=== PATIENT | female | born 1985 | race Caucasian/White ===

== ENCOUNTER 2016-08-05 15:39 | Emergency (ER) | payer OTHER ==
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
[2016-08-05] MEDS ORDERED: IBUPROFEN 600 MG TAB PO STA (17:09)
[2016-08-05 17:18] VITALS: BP 120/75; PULSE 86; RESP 16; TEMP 97.4
== END 2016-08-05 17:35 | disposition home or self-care (01) ==
LOC: EC 15:39
DX: S06.0X0A Concussion without loss of consciousness, initial encounter (principal); S00.511A Abrasion of lip, initial encounter; S00.83XA Contusion of other part of head, initial encounter; V89.2XXA Person injured in unspecified motor-vehicle accident, traffic, initial encounter; Z79.51 Long term (current) use of inhaled steroids; Z79.899 Other long term (current) drug therapy
CPT/HCPCS: 70450; 70486; 72125; 99283

== ENCOUNTER → 2016-08-06 | Outpatient (CLI) | payer OTHER ==
--- NOTE | 2016-08-06 13:06 | XR ---
EXAMINATION TYPE: XR knee complete RT DATE OF EXAM: 08/06/2016 1:01 PM CLINICAL HISTORY: pain TECHNIQUE: Frontal, lateral and oblique images of the right foot are obtained. COMPARISON: None. FINDINGS: There is no acute fracture/dislocation evident. The joint spaces appear within normal yu its. The overlying soft tissue appears unremarkable. IMPRESSION: There is no acute fracture or dislocation. ICD 10 NO FRACTURE, INITIAL EVALUATION
== END | disposition home or self-care (01) ==
LOC: RADXRMAIN 12:51
PROVIDERS: ATTEND Emergency Medicine
DX: S80.01XA Contusion of right knee, initial encounter (principal)

== ENCOUNTER → 2016-09-06 | Outpatient (CLI) | payer OTHER | END | disposition home or self-care (01) | LOC: LABPAT 09:20 | PROVIDERS: ATTEND Surgery ==

== ENCOUNTER 2016-11-25 06:25 | Day surgery (SDC) | payer OTHER ==
[2016-11-20 11:41] VITALS: BMI 20.9
[~2016-11-25 06:25] MED LIST: DEXAMETHASONE SOD PHOSPHATE 10 MG/ML 1 ML VIAL IV ONE; HEPARIN SODIUM,PORCINE 5,000 UNIT/ML 1 ML VIAL SQ ONE; LACTATED RINGERS 1,000 ML IV SCH; ONDANSETRON 4 MG/2 ML VIAL IVP ONE; SCOPOLAMINE 1.5MG/72HR PATCH TRANSDERM ONE; ceFAZolin 2 GM in SODIUM CHLORIDE 0.9% 100 ML IVPB ONE
[2016-11-25 06:45] VITALS: RESP 16
[2016-11-25] MEDS ORDERED: LIDOCAINE 1% 20 ML VIAL (10MG/ML) FOR IV START INTRADERMA ONE (06:50)
[2016-11-25] MEDS ORDERED: BUPIVACAIN-EPI 0.5%-1:200,000 30 ML VIAL SQ ONE ×2 (07:27→08:20)
--- NOTE | 2016-11-25 07:49 | P.GSHP ---
History of Present Illness H&P Date: 11/25/16 Chief Complaint: Incisional hernia This is a 31-year-old female who presents today for laparoscopic robotic- assisted repair of incisional hernia. Patient has developed a hernia at her incision for her . The hernia is increased in size. - Constitutional Constitutional: Reports as per HPI Past Medical History Past Medical History: No Reported History Additional Past Medical History / Comment(s): INCISIONAL HERNIA., ALLERGIES. History of Any Multi-Drug Resistant Organisms: None Reported Past Surgical History: Section Additional Past Surgical History / Comment(s): BUNIONECTOMY X2, X2 Past Anesthesia/Blood Transfusion Reactions: No Reported Reaction Smoking Status: Never smoker - Past Family History Mother Family Medical History: No Reported History Medications and Allergies Home Medications Medication Instructions Recorded Confirmed Type Fluticasone Nasal [place] [Flonase 2 spr EA NOSTRIL DAILY PRN 08/05/16 11/25/16 History Nasal [place]] Loratadine [Claritin] 10 mg PO DAILY PRN 08/05/16 11/25/16 History Escitalopram [Lexapro] 10 mg PO DAILY 09/05/16 11/25/16 History Ibuprofen [Motrin] 800 mg PO BID 09/05/16 11/25/16 History Allergies Allergy/AdvReac Type Severity Reaction Status Date / Time No Known Allergies Allergy Verified 11/25/16 06:41 Surgical - Exam Vital Signs Temp Pulse Resp BP Pulse Ox 98.5 F 69 16 123/78 100 11/25/16 06:35 11/25/16 06:35 11/25/16 06:35 11/25/16 06:35 11/25/16 06:35 - General well developed, no distress - Eyes PERRL - ENT normal pinna - Neck no masses - Respiratory normal expansion - Cardiovascular Rhythm: regular - Abdomen Abdomen: soft, non tender Hernia: incisional (3 cm incisional hernia located near umbilicus) Assessment and Plan Plan: Incisional hernia. We'll perform laparoscopic robotic assistance repair.
[2016-11-25] MEDS ORDERED: MIDAZOLAM 2 MG/2 ML VIAL ONE (07:54)
[2016-11-25] MEDS ORDERED: PROPOFOL 10 MG/ML 20 ML VIAL IV ONE (07:54)
[2016-11-25] MEDS ORDERED: fentaNYL (PF) 50 MCG/ML 2 ML AMP ONE (07:54)
[2016-11-25] MEDS ORDERED: LIDOCAINE 1% INJ 10MG/ML (20 ML MDV) ONE (07:54)
[2016-11-25] MEDS ORDERED: SUCCINYLCHOLINE CHLORIDE 100 MG/5 ML SYR IV ONE (07:54)
[2016-11-25] MEDS ORDERED: GLYCOPYRROLATE 0.2 MG/ML 2 ML VIAL ONE (07:54)
[2016-11-25] MEDS ORDERED: diphenhydrAMINE 50 MG/ML 1 ML VIAL ONE (07:54)
[2016-11-25] MEDS ORDERED: MORPHINE SULFATE 10 MG/ML SYRINGE ONE (07:54)
[2016-11-25] MEDS ORDERED: ROCURONIUM BROMIDE 10 MG/ML 10 ML VIAL IV ONE (07:54)
[2016-11-25] MEDS ORDERED: NEOSTIGMINE 1 MG/ML 10 ML VIAL ONE (07:54)
[2016-11-25] MEDS ORDERED: LACTATED RINGERS 1,000 ML IV ONE ×3 (09:03→14:36)
--- NOTE | 2016-11-25 09:04 | P.OP ---
Date of Procedure: 11/25/16 Preoperative Diagnosis: Incisional hernia Postoperative Diagnosis: Incisional hernia Procedure(s) Performed: Laparoscopic robotic-assisted repair of incisional hernia Implants: Anesthesia: SALMAA Surgeon: Brayden Hart Estimated Blood Loss (ml): 5 Pathology: none sent Condition: stable Disposition: PACU Indications for Procedure: Operative Findings: Description of Procedure: The patient's placed on the operating table in the supine position. She received general anesthesia. Her abdomen was prepped and draped usual fashion. The skin incision sites were anesthetized 1% local Xylocaine. Using a 5 mm optical trocar the peritoneal cavity was entered in the left upper quadrant. The abdomen was insufflated and then after adequate insufflation a 8 mm robotic trochars placed left lower quadrant and a 12 mm trochars placed in the left lateral position. The patient's placed left side up position. The patient was then docked the robot. The patient had a midline incisional hernia located near the umbilicus. Using OV lock suture. The hernia was repaired. Next a 11 cm round ventral light ST mesh was placed. Cavity and secured with 2 OV lock suture. The patient was then undocked the robot. The needles were retrieved. The 1200 trocar with was removed and the trocar site was closed with 0 Ethibond suture using a Jayme Lee suture passer. The trochars withdrawn. Skin was closed with interrupted 3-0 Monocryl suture. Dermabond was applied. Patient top she will was sent to recovery in stable condition.
[2016-11-25 09:25] VITALS: TEMP 98.2
[2016-11-25] MEDS: HYDROmorphone 1 MG/ML 1 ML SYRINGE IVP PRN ×3 (09:30→09:40)
[2016-11-25] MEDS ORDERED: KETOROLAC 30 MG/ML 1 ML VIAL IVP ONE (09:41)
[2016-11-25] MEDS: MIDAZOLAM 2 MG/2 ML VIAL IV PRN ×2 (09:45→09:51)
[2016-11-25] MEDS ORDERED: HYDROcodone/APAP 7.5-325MG 1 EACH TAB PO ONE ×2 (11:34→11:43)
[2016-11-25] MEDS ORDERED: ONDANSETRON 4 MG/2 ML VIAL IVP ONE (14:29)
[2016-11-25 14:39] VITALS: BP 117/77; PULSE 73
== END 2016-11-25 16:49 | disposition home or self-care (01) ==
LOC: OR 06:25
PROVIDERS: ATTEND Surgery
DX: K43.2 Incisional hernia without obstruction or gangrene (principal); Z79.1 Long term (current) use of non-steroidal anti-inflammatories (NSAID); Z79.899 Other long term (current) drug therapy
CPT/HCPCS: 81025; 86900; 86901; 86850; 49654; C1781; J2250; J1644; J1100; J0690; J2405; J1885; J1170

== ENCOUNTER → 2017-01-01 | Outpatient (CLI) | payer OTHER ==
--- NOTE | 2017-01-01 20:51 | CT ---
EXAMINATION TYPE: CT abdomen pelvis w con DATE OF EXAM: 01/01/2017 COMPARISON: NONE HISTORY: Left lower quadrant pain x [address] DLP: 452.70 mGycm Automated exposure control for dose reduction was used. TECHNIQUE: Helical acquisition of images was performed from the lung bases through the pelvis. CONTRAST: Performed with Oral Contrast and with IV Contrast, patient injected with 100 mL of Omnipaque 300. FINDINGS: Lung bases are clear. There is no pleural effusion. There is no pericardial effusion. Liver spleen pancreas appear normal. Gallbladder is contracted. There is no adrenal mass. Bile ducts are not dilated. Kidneys show satisfactory contrast opacification. There is no hydronephrosis. Ureters are not dilated . There is a 2.5 cm cyst on the left ovary. There are clips from tubal ligation. Urinary bladder is l arge. There is a small amount of free fluid in the cul-de-sac. I see no intestinal wall thickening. There are some distended small bowel loops in the left upper анна drant that measure up to 4 cm. Oral contrast reaches the distal ileum however. There is no sign of a mechanical obstruction. I see no bony destructive process.. There is no sign of appendicitis. IMPRESSION: DISTENDED PROXIMAL SMALL BOWEL IS NONSPECIFIC AND COULD RELATE TO LOCALIZED ILEUS. NO EVIDENCE OF A BOWEL OBSTRUCTION. DILATED URINARY BLADDER. MINIMAL FREE FLUID IN THE CUL-DE-SAC COULD BE PHYSIOLOGIC.
== END | disposition home or self-care (01) ==
LOC: RADCTMAIN 15:27
PROVIDERS: ATTEND Surgery
DX: K56.7 Ileus, unspecified (principal); N32.89 Other specified disorders of bladder; K63.89 Other specified diseases of intestine
CPT/HCPCS: 74177; Q9967

== ENCOUNTER 2017-09-28 09:54 | Observation (INO) | payer OTHER ==
[2017-09-28] MEDS ORDERED: NITROGLYCERIN OINT 1 INCH/GM PACKET TOPICAL STA (10:19)
[2017-09-28] MEDS ORDERED: ASPIRIN 81 MG PO STA (10:19)
--- NOTE | 2017-09-28 10:22 | ED ---
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 Patient states it was a pressure in the left side of her heart she was also mildly diaphoretic. Patient denied any difficulty breathing or shortness of breath per patient denies any nausea. Patient states she does not have diabetes high blood pressure or high cholesterol. Patient denies any smoking history. Patient states she has heart history on both sides of the family. Patient denies any recent fever chills or cough. Patient denies abdominal pain. Patient denies any nausea vomiting. Patient denies any recent injury or trauma she denies headache patient denies numbness weakness per patient denies lightheadedness dizziness or near syncopal episode. - Related Data Home Medications Medication Instructions Recorded Confirmed Fluticasone Nasal [place] [Flonase 2 spr EA NOSTRIL DAILY PRN 08/05/16 09/28/17 Nasal [place]] Loratadine [Claritin] 10 mg PO DAILY 08/05/16 09/28/17 Budesonide/Formoterol Fumarate 1 puff INHALATION RT-BID 09/28/17 09/28/17 [Symbicort 160-4.5 Mcg Inhaler] Montelukast [Singulair] 10 mg PO DAILY 09/28/17 09/28/17 Allergies Allergy/AdvReac Type Severity Reaction Status Date / Time No Known Allergies Allergy Verified 09/28/17 10:18 Review of Systems ROS Statement: Those systems with pertinent positive or pertinent negative responses have been documented in the HPI. ROS Other: All systems not noted in ROS Statement are negative. Past Medical History Past Medical History: No Reported History Additional Past Medical History / Comment(s): INCISIONAL HERNIA., coastchodritis History of Any Multi-Drug Resistant Organisms: None Reported Past Surgical History: Section, Hernia Repair Additional Past Surgical History / Comment(s): BUNIONECTOMY X2, X2 Past Anesthesia/Blood Transfusion Reactions: No Reported Reaction Past Psychological History: Depression Smoking Status: Never smoker Past Alcohol Use History: None Reported Past Drug Use History: None Reported - Past Family History Mother Family Medical History: No Reported History General Exam - General Exam Comments Initial Comments: GENERAL: Patient is well-developed and well-nourished. Patient is nontoxic and well- hydrated and is in mild distress. ENT: Neck is soft and supple. No significant lymphadenopathy is noted. Oropharynx is clear. Moist mucous membranes. Neck has full range of motion without eliciting any pain. EYES: The sclera were anicteric and conjunctiva were pink and moist. Extraocular movements were intact and pupils were equal round and reactive to light. Eyelids were unremarkable. PULMONARY: Unlabored respirations. Good breath sounds bilaterally. No audible rales rhonchi or wheezing was noted. CARDIOVASCULAR: There is a regular rate and rhythm without any murmurs gallops or rubs. ABDOMEN: Soft and nontender with normal bowel sounds. No palpable organomegaly was noted. There is no palpable pulsatile mass. SKIN: Skin is clear with no lesions or rashes and otherwise unremarkable. NEUROLOGIC: Cerebellar exam grossly intact. MUSCULOSKELETAL: Normal extremities with adequate strength and full range of motion. No lower extremity swelling or edema. No calf tenderness. LYMPHATICS: No significant lymphadenopathy is noted PSYCHIATRIC: Normal psychiatric evaluation. Normal interpersonal interactions appears functionally intact in deals appropriately with others. No signs of depression. No signs of anxiety. Limitations: no limitations Course Vital Signs 09/28/17 09:56 Temperature 97.9 F Pulse Rate 78 Respiratory 16 Rate Blood Pressure 155/66 O2 Sat by Pulse 100 Oximetry Medical Decision Making - Medical Decision Making EKG shows a normal sinus rhythm at 79 bpm SD interval is 158 QRS 72 QT interval 376 QTC is 431. Patient's EKG shows no ST segment elevation or depression. Chest x-ray shows no acute abnormalities. Patient states that the chest pain got worse for a little while in the emergency department but reduced but has not gone away completely. Patient also mentioned she has been having some headaches over the last week or 2 but denied any strokelike symptoms. Patient states headache now is very slight - Lab Data Result diagrams: 09/28/17 10:17 09/28/17 10:17 Lab Results 09/28/17 09/28/17 09/28/17 Range/Units 10:17 10:17 10:17 WBC 5.8 (3.8-10.6) k/uL RBC 3.98 (3.80-5.40) m/uL Hgb 10.8 L (11.4-16.0) gm/dL Hct 32.7 L (34.0-46.0) % MCV 82.2 (80.0-100.0) fL MCH 27.1 (25.0-35.0) pg MCHC 32.9 (31.0-37.0) g/dL RDW 14.2 (11.5-15.5) % Plt Count 199 (150-450) k/uL Neutrophils % 74 % Lymphocytes % 18 % Monocytes % 5 % Eosinophils % 2 % Basophils % 0 % Neutrophils # 4.3 (1.3-7.7) k/uL Lymphocytes # 1.0 (1.0-4.8) k/uL Monocytes # 0.3 (0-1.0) k/uL Eosinophils # 0.1 (0-0.7) k/uL Basophils # 0.0 (0-0.2) k/uL PT (9.0-12.0) sec INR (<1.2) APTT (22.0-30.0) sec Sodium 143 (137-145) mmol/L Potassium 4.2 (3.5-5.1) mmol/L Chloride 107 (98-107) mmol/L Carbon Dioxide 25 (22-30) mmol/L Anion Gap 11 mmol/L BUN 14 (7-17) mg/dL Creatinine 0.62 (0.52-1.04) mg/dL Est GFR (CKD-EPI)AfAm >90 (>60 ml/min/1.73 sqM) Est GFR (CKD-EPI)NonAf >90 (>60 ml/min/1.73 sqM) Glucose 87 (74-99) mg/dL Calcium 9.6 (8.4-10.2) mg/dL Magnesium 1.8 (1.6-2.3) mg/dL Total Bilirubin 0.2 (0.2-1.3) mg/dL AST 15 (14-36) U/L ALT 15 (9-52) U/L Alkaline Phosphatase 45 (38-126) U/L Total Creatine Kinase 80 (30-135) U/L CK-MB (CK-2) 0.6 (0.0-2.4) ng/mL CK-MB (CK-2) Rel Index 0.8 Troponin I <0.012 (0.000-0.034) ng/mL Total Protein 6.2 L (6.3-8.2) g/dL Albumin 3.9 (3.5-5.0) g/dL 09/28/17 Range/Units 10:17 WBC (3.8-10.6) k/uL RBC (3.80-5.40) m/uL Hgb (11.4-16.0) gm/dL Hct (34.0-46.0) % MCV (80.0-100.0) fL MCH (25.0-35.0) pg MCHC (31.0-37.0) g/dL RDW (11.5-15.5) % Plt Count (150-450) k/uL Neutrophils % % Lymphocytes % % Monocytes % % Eosinophils % % Basophils % % Neutrophils # (1.3-7.7) k/uL Lymphocytes # (1.0-4.8) k/uL Monocytes # (0-1.0) k/uL Eosinophils # (0-0.7) k/uL Basophils # (0-0.2) k/uL PT 10.3 (9.0-12.0) sec INR 1.1 (<1.2) APTT 25.2 (22.0-30.0) sec Sodium (137-145) mmol/L Potassium (3.5-5.1) mmol/L Chloride (98-107) mmol/L Carbon Dioxide (22-30) mmol/L Anion Gap mmol/L BUN (7-17) mg/dL Creatinine (0.52-1.04) mg/dL Est GFR (CKD-EPI)AfAm (>60 ml/min/1.73 sqM) Est GFR (CKD-EPI)NonAf (>60 ml/min/1.73 sqM) Glucose (74-99) mg/dL Calcium (8.4-10.2) mg/dL Magnesium (1.6-2.3) mg/dL Total Bilirubin (0.2-1.3) mg/dL AST (14-36) U/L ALT (9-52) U/L Alkaline Phosphatase (38-126) U/L Total Creatine Kinase (30-135) U/L CK-MB (CK-2) (0.0-2.4) ng/mL CK-MB (CK-2) Rel Index Troponin I (0.000-0.034) ng/mL Total Protein (6.3-8.2) g/dL Albumin (3.5-5.0) g/dL Disposition Clinical Impression: Chest pain Disposition: ADMITTED IP TO THIS HOSP Referrals: Julita Camp DO [Primary Care Provider] - 1-2 days Time of Disposition: 12:01
[2017-09-28 10:38] LABS: Basophils % (A) 0 %; Eosinophils # (A) 0.1 k/uL (0-0.7); Eosinophils % (A) 2 %; HCT 32.7 % (34.0-46.0); HGB 10.8 gm/dL (11.4-16.0); Lymphocytes % (A) 18 %; MCH 27.1 pg (25.0-35.0); MCHC 32.9 g/dL (31.0-37.0); MCV 82.2 fL (80.0-100.0); Monocytes # (A) 0.3 k/uL (0-1.0); Monocytes % (A) 5 %; Neutrophils # (A) 4.3 k/uL (1.3-7.7); Neutrophils % (A) 74 %; Platelet Count 199 k/uL (150-450); RBC 3.98 m/uL (3.80-5.40); RDW 14.2 % (11.5-15.5); WBC 5.8 k/uL (3.8-10.6)
--- NOTE | 2017-09-28 10:39 | XR ---
EXAMINATION TYPE: XR chest 2V DATE OF EXAM: 09/28/2017 COMPARISON: NONE HISTORY: Chest pain today. TECHNIQUE: Frontal and lateral views of the chest are obtained. FINDINGS: Overlying EKG wires are seen. There is no focal air space opacity, pleural effusion, or pn eumothorax seen. The cardiac silhouette size is within normal limits. The osseous structures are i ntact. IMPRESSION: No acute cardiopulmonary process.
[2017-09-28 10:44] LABS: ALT 15 U/L (9-52); AST 15 U/L (14-36); Albumin 3.9 g/dL (3.5-5.0); Alkaline Phosphatase 45 U/L (38-126); Anion Gap 11 mmol/L; Blood Urea Nitrogen 14 mg/dL (7-17); Calcium 9.6 mg/dL (8.4-10.2); Carbon Dioxide 25 mmol/L (22-30); Chloride 107 mmol/L (98-107); Glucose 87 mg/dL (74-99); INR 1.1 (<1.2); Magnesium 1.8 mg/dL (1.6-2.3); Partial Thromboplastin Time 25.2 sec (22.0-30.0); Potassium 4.2 mmol/L (3.5-5.1); Prothrombin Time 10.3 sec (9.0-12.0); Sodium 143 mmol/L (137-145); Total Bilirubin 0.2 mg/dL (0.2-1.3); Total Protein 6.2 g/dL (6.3-8.2)
[2017-09-28 11:04] LABS: Creatine Kinase 80 U/L (30-135)
[2017-09-28 11:17] LABS: Creatine Kinase MB 0.6 ng/mL (0.0-2.4); Troponin I <0.012 ng/mL (0.000-0.034)
[2017-09-28] MEDS ORDERED: NITROGLYCERIN SL TABS 0.4 MG TAB SUBLINGUAL PRN (12:01)
[2017-09-28] MEDS ORDERED: FLUTICASONE 50MCG/SPRAY NASAL 16GM EA NOSTRIL PRN (12:33)
--- NOTE | 2017-09-28 13:41 | P.HPIM ---
History of Present Illness H&P Date: 09/28/17 Chief Complaint: Chest pain This is a 32-year-old female, patient of Dr. Camp. She has a known past medical history of costochondritis for several years, depression and asthma. Patient reports she started having left sided sharp chest pain while working today. She reports the pain lasted for about a half hour and that she was diaphoretic with it. She went to see the nurse at the facility and was told that her blood pressure was good but recommended that she goes to the emergency room for further evaluation. Patient does have family history of cardiac disease. Patient reports that the chest pain did improve while she was in the ambulance. And she had further improvement in the pain when the nitro patch was placed. Patient reports that this chest pain was different than her usual costochondritis pains. Last stress test was 2 years ago and negative per patient. Patient is been admitted to the observation floor and cardiology has been consulted. Patient is also been reporting headaches in the back of her head that radiated up into the front of her head. She's been having some episodes of dizziness and did have vision changes and some vision loss in the right eye that only lasted a few minutes. Patient denies any slurred speech any numbness or weakness on one side of the body. She denies any history of diabetes high blood pressure stroke or any heart disease. EKG showing a normal sinus rhythm. Chest x-rays negative. Troponins negative 1. Hemoglobin 10.8. Cardiology has been consulted and neurology. Computed tomography scan of the brain has been ordered. Patient denies any cough, fever or chills or sweats. Denies any vomiting. Denies any bowel movement changes or urinary symptoms. Review of Systems Please refer to HPI otherwise unremarkable Past Medical History Past Medical History: No Reported History Additional Past Medical History / Comment(s): INCISIONAL HERNIA., coastchodritis History of Any Multi-Drug Resistant Organisms: None Reported Past Surgical History: Section, Hernia Repair Additional Past Surgical History / Comment(s): BUNIONECTOMY X2, X2 Past Anesthesia/Blood Transfusion Reactions: No Reported Reaction Past Psychological History: Depression Smoking Status: Never smoker Past Alcohol Use History: None Reported Past Drug Use History: None Reported - Past Family History Mother Family Medical History: No Reported History Medications and Allergies Home Medications Medication Instructions Recorded Confirmed Type Fluticasone Nasal [place] [Flonase 2 spr EA NOSTRIL DAILY PRN 08/05/16 09/28/17 History Nasal [place]] Loratadine [Claritin] 10 mg PO DAILY 08/05/16 09/28/17 History Budesonide/Formoterol Fumarate 1 puff INHALATION RT-BID 09/28/17 09/28/17 History [Symbicort 160-4.5 Mcg Inhaler] Montelukast [Singulair] 10 mg PO DAILY 09/28/17 09/28/17 History Allergies Allergy/AdvReac Type Severity Reaction Status Date / Time No Known Allergies Allergy Verified 09/28/17 10:18 Physical Exam Vitals: Vital Signs Temp Pulse Pulse Resp BP BP Pulse Ox 09/28/17 13:00 98.4 F 72 16 123/67 100 09/28/17 12:28 78 16 115/69 100 09/28/17 09:56 97.9 F 78 16 155/66 100 Intake and Output 09/27/17 09/28/17 09/28/17 22:59 06:59 14:59 Other: Weight 69 kg Head normocephalic Neck supple Lungs clear to auscultation bilaterally no wheezing or crackles Heart regular rate and rhythm S1-S2, no rub or gallop. Tenderness with palpation of the chest wall. However, patient states that the pain is not the same that she is feeling earlier today Abdomen is soft nontender nondistended positive bowel sounds no hepatosplenomegaly Extremities no edema Neuro alert and orientated to 3 Results CBC & Chem 7: 09/28/17 10:17 09/28/17 10:17 Labs: Abnormal Lab Results - Last 24 Hours (Table) 09/28/17 09/28/17 Range/Units 10:17 10:17 Hgb 10.8 L (11.4-16.0) gm/dL Hct 32.7 L (34.0-46.0) % Total Protein 6.2 L (6.3-8.2) g/dL Assessment and Plan Assessment: 1. Chest pain: Cardiac workup in progress. Cardiology consulted. EKG normal sinus rhythm. First troponin is negative. We'll follow up on further cardiac enzymes. Chest x-rays negative. 2. Headache with vision changes: Check computed tomography scan of the brain. Consult neurology. 3. History of costochondritis 4. History of depression GI prophylaxis Pepcid and DVT prophylaxis subcu heparin Time with Patient: Greater than 30 (Greater than 50% of the total time spent in counseling and coordination of care.I performed an examination of the patient and discussed their management with the physician Tuck Pointer. I have reviewed the Physician Tuck Pointer's notes and agree with the documented findings and plan of care)
--- NOTE | 2017-09-28 13:42 | CT ---
EXAMINATION TYPE: CT brain wo con DATE OF EXAM: 09/28/2017 COMPARISON: CT brain August 05, 2016 HISTORY: Headache and visual changes CT DLP: 1017.9 mGycm. Automated Exposure Control for Dose Reduction was Utilized. TECHNIQUE: CT scan of the head is performed without contrast. FINDINGS: There is no acute intracranial hemorrhage, mass effect, or midline shift identified. The ventricles and sulci are within normal limits in size. Moura-white matter differentiation is maintain ed The globes are intact and the visualized sinuses are clear. IMPRESSION: No acute intracranial hemorrhage, mass effect, or midline shift is seen currently.
[2017-09-28 14:45] VITALS: BMI 24.5
--- NOTE | 2017-09-28 14:46 | P.CRDCN ---
History of Present Illness Consult date: 09/28/17 History of present illness: Mrs. Maravilla is a pleasant 32-year-old female with no past medical history. She denies history of coronary artery disease and has never seen a metal miner for any reason. We have been asked to see her in consultation for chest pain. 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 She felt as if she was mildly short of breath and diaphoretic. She went to see the nurse at work and had her blood pressure checked and that came to be normal. The pain persisted for approximately 30 minutes and seemed to subside on its own. No specific aggravating or alleviating factors. She denies dizziness, palpitations, nausea or vomiting. The pain is not reproducible. She does states that she has had costrochondritis in the past and this felt different to her. She also is having a headache with vision changes in the right eye over the weekend. CT brain is negative. EKG reveals sinus mechanism with no acute ST or T-wave abnormalities. Chest xray is negative for an acute cardiopulmonary process. Laboratory data reviewed, hemoglobin 10.8, platelets 199, sodium 143, potassium 4.2, creatinine 0.62, trapezium 1.8, cardiac enzymes negative 1. Review of Systems At the time of my exam: CONSTITUTIONAL: Denies fever. Denies chills. EYES: Denies blurred vision. Denies vision changes. Denies eye pain. EARS, NOSE, MOUTH & THROAT: Denies headache. Denies sore throat. Denies ear pain. CARDIOVASCULAR: Denies chest pain. Denies shortness of breath. Denies orthopnea. Denies PND. Denies palpitations. RESPIRATORY: Denies cough. GASTROINTESTINAL: Denies abdominal pain. Denies diarrhea. Denies constipation. Denies nausea. Denies vomiting. MUSCULOSKELETAL: Denies myalgias. INTEGUMENTARY: Denies pruitis. Denies rash. NEUROLOGIC: Denies numbness. Denies tingling. Denies weakness. Complains of headache. PSYCHIATRIC: Denies anxiety. Denies depression. ENDOCRINE: Denies fatigue. Denies weight change. Denies polydipsia. Denies polyurina. GENITOURINARY: Denies burning, hematuria or urgency with micturation. HEMATOLOGIC: Denies history of anemia. Denies bleeding. Past Medical History Past Medical History: No Reported History Additional Past Medical History / Comment(s): INCISIONAL HERNIA., coastchodritis History of Any Multi-Drug Resistant Organisms: None Reported Past Surgical History: Section, Hernia Repair Additional Past Surgical History / Comment(s): BUNIONECTOMY X2, X2 Past Anesthesia/Blood Transfusion Reactions: No Reported Reaction Past Psychological History: Depression Smoking Status: Never smoker Past Alcohol Use History: None Reported Past Drug Use History: None Reported - Past Family History Mother Family Medical History: No Reported History Medications and Allergies Home Medications Medication Instructions Recorded Confirmed Type Fluticasone Nasal [place] [Flonase 2 spr EA NOSTRIL DAILY PRN 08/05/16 09/28/17 History Nasal [place]] Loratadine [Claritin] 10 mg PO DAILY 08/05/16 09/28/17 History Budesonide/Formoterol Fumarate 1 puff INHALATION RT-BID 09/28/17 09/28/17 History [Symbicort 160-4.5 Mcg Inhaler] Montelukast [Singulair] 10 mg PO DAILY 09/28/17 09/28/17 History Allergies Allergy/AdvReac Type Severity Reaction Status Date / Time No Known Allergies Allergy Verified 09/28/17 10:18 Physical Exam Vitals: Vital Signs Temp Pulse Pulse Resp BP BP Pulse Ox 09/28/17 13:00 98.4 F 72 16 123/67 100 09/28/17 12:28 78 16 115/69 100 09/28/17 09:56 97.9 F 78 16 155/66 100 Intake and Output 09/27/17 09/28/17 09/28/17 22:59 06:59 14:59 Other: Weight 69 kg Blood pressure 123/67 heart rate 72 afebrile maintaining oxygen saturation on room air GENERAL: This is a 32-year-old female in no apparent distress at the time of my examination. HEENT: Head is atraumatic, normocephalic. Pupils are equal, round. Sclerae anicteric. Conjunctivae are clear. Mucous membranes of the mouth are moist. Neck is supple. There is no jugular venous distention. No carotid bruit is heard. LUNGS: Clear to auscultation no wheezes, rales or rhonchi. No chest wall tenderness is noted on palpation or with deep breathing. HEART: Regular rate and rhythm without murmurs, rubs or gallops. S1 and S2 heard. ABDOMEN: Soft, nontender. Bowel sounds are heard. No organomegaly noted. EXTREMITIES: No evidence of peripheral edema and no calf tenderness noted. VASCULAR: Radial and dorsalis pedis pulses palpated, no evidence of clubbing. NEUROLOGIC: Patient is awake, alert and oriented x3. Results 09/28/17 10:17 09/28/17 10:17 Cardiac Enzymes 09/28/17 09/28/17 Range/Units 10:17 10:17 AST 15 (14-36) U/L CK-MB (CK-2) 0.6 (0.0-2.4) ng/mL Troponin I <0.012 (0.000-0.034) ng/mL Coagulation 09/28/17 Range/Units 10:17 PT 10.3 (9.0-12.0) sec APTT 25.2 (22.0-30.0) sec CBC 09/28/17 Range/Units 10:17 WBC 5.8 (3.8-10.6) k/uL RBC 3.98 (3.80-5.40) m/uL Hgb 10.8 L (11.4-16.0) gm/dL Hct 32.7 L (34.0-46.0) % Plt Count 199 (150-450) k/uL Comprehensive Metabolic Panel 09/28/17 Range/Units 10:17 Sodium 143 (137-145) mmol/L Potassium 4.2 (3.5-5.1) mmol/L Chloride 107 (98-107) mmol/L Carbon Dioxide 25 (22-30) mmol/L BUN 14 (7-17) mg/dL Creatinine 0.62 (0.52-1.04) mg/dL Glucose 87 (74-99) mg/dL Calcium 9.6 (8.4-10.2) mg/dL AST 15 (14-36) U/L ALT 15 (9-52) U/L Alkaline Phosphatase 45 (38-126) U/L Total Protein 6.2 L (6.3-8.2) g/dL Albumin 3.9 (3.5-5.0) g/dL Current Medications Generic Name Dose Route Start Last Admin Trade Name Freq PRN Reason Stop Dose Admin Budesonide/Formoterol Fumarate 2 puff 09/28/17 20:00 Symbicort 160-4.5 Mcg Inhaler INHALATION RT-BID CYDNEY Famotidine 20 mg 09/29/17 09:00 Pepcid PO DAILY CYDNEY Fluticasone Propionate 2 spray 09/28/17 12:33 Flonase Nasal [place] EA NOSTRIL DAILY PRN Allergy Symptoms Heparin Sodium (Porcine) 5,000 unit 09/28/17 21:00 Heparin SQ Q12HR CYDNEY Loratadine 10 mg 09/29/17 09:00 Claritin PO DAILY CYDNEY Montelukast Sodium 10 mg 09/29/17 09:00 Singulair PO DAILY CY[place]NEY Nitroglycerin 0.4 mg 09/28/17 12:01 Nitrostat SUBLINGUAL Q5M PRN Chest Pain Intake and Output 09/27/17 09/28/17 09/28/17 22:59 06:59 14:59 Other: Weight 69 kg Patient Weight 09/29/17 06:59 Weight 69 kg 09/28/17 10:17 09/28/17 10:17 Assessment and Plan Assessment: ASSESSMENT 1. Chest pain, atypical. 2. Headache with vision changes. 3. Family history of heart disease with her father having stent placed in late 50's. PLAN Continue to obtain serial cardiac enzymes to rule out an acute coronary event. If negative will consider stress testing. Discontinue nitropaste and increase activity. Assess for ongoing symptoms of chest pain. Further recommendations based on clinical course. Thank you kindly for this consultation. Nurse Practitioner note has been reviewed, I agree with a documented findings and plan of care. Patient was seen and examined.
[2017-09-28 16:54] LABS: Creatine Kinase 65 U/L (30-135)
[2017-09-28 17:07] LABS: Creatine Kinase MB 0.4 ng/mL (0.0-2.4); Troponin I <0.012 ng/mL (0.000-0.034)
[2017-09-28] MEDS ORDERED: NITROGLYCERIN OINT 1 INCH/GM PACKET TOPICAL SCH (18:00)
--- NOTE | 2017-09-28 18:38 | P.CNNES ---
History of Present Illness Consult date: 09/28/17 Reason for Consult: Patient with headaches and right eye vision blurring. History of Present Illness: This patient is a 32-year-old right-handed white female who was brought into the emergency room for evaluation of chest pain and headache. Patient has a history of costochondritis for the past several years and has had workup for this in the past. She reported a episode yesterday at which she was feeling severe diaphoresis and chest pain. She also had been complaining of a chronic headache for the past 2 weeks. This is mostly at the base of the skull. She has been continuing to work at the [employer] and apparently today he developed chest pain of sudden onset causing concern to the staff. She was advised to go to the emergency room and was seen in the ER today by Dr. Granados. She was sent for a computed tomography scan of the brain which revealed no acute changes. There is no evidence of any mass effect or midline shift. Patient was admitted to hospital for further evaluation. She is being seen by cardiology for further assessment of her chest pain and midsternal pain symptoms. Patient states her headaches have been chronic over the past 2 months and most 3 localizing to the base of the skull. She has no evidence of occipital tenderness on examination today. She does have significant muscle tension involving the sternocleidomastoid muscles on the right side of her neck. She states she does go to the chiropractor once a month for manipulation which does seem to help her symptoms. Her episode of vision changes occurred lasting only 1-2 minutes in duration and completely resolved. She states that it was a blurring of vision only with no loss of vision. She has not had this since admission to hospital. The patient states she does use a muscle relaxant at times throughout her regular work week. 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 She denies any recent neck injury or recent falls injuring her neck. She denies any radicular pain into the arms or tingling sensation into the hands. Her neurological examination today is nonfocal. She is now been admitted and neurology has been consulted for further evaluation and recommendations. Review of Systems Constitutional: Denies chills, Denies fever Eyes: right blurred vision, denies pain Ears, nose, mouth and throat: Denies headache, Denies sore throat Cardiovascular: Reports palpitations, Denies chest pain, Denies shortness of breath Respiratory: Denies cough Gastrointestinal: Denies abdominal pain, Denies diarrhea, Denies nausea, Denies vomiting Genitourinary: Denies dysuria, Denies hematuria Musculoskeletal: Denies myalgias Integumentary: Denies pruritus, Denies rash Neurological: Reports headaches, Reports loss of vision, Denies numbness, Denies weakness Psychiatric: Denies anxiety, Denies depression Endocrine: Denies fatigue, Denies weight change Past Medical History Past Medical History: No Reported History Additional Past Medical History / Comment(s): INCISIONAL HERNIA., coastchodritis History of Any Multi-Drug Resistant Organisms: None Reported Past Surgical History: Section, Hernia Repair Additional Past Surgical History / Comment(s): BUNIONECTOMY X2, X2 Past Anesthesia/Blood Transfusion Reactions: No Reported Reaction Past Psychological History: Depression Smoking Status: Never smoker Past Alcohol Use History: None Reported Past Drug Use History: None Reported - Past Family History Mother Family Medical History: No Reported History Medications and Allergies Home Medications Medication Instructions Recorded Confirmed Type Fluticasone Nasal [place] [Flonase 2 spr EA NOSTRIL DAILY PRN 08/05/16 09/28/17 History Nasal [place]] Loratadine [Claritin] 10 mg PO DAILY 08/05/16 09/28/17 History Budesonide/Formoterol Fumarate 1 puff INHALATION RT-BID 09/28/17 09/28/17 History [Symbicort 160-4.5 Mcg Inhaler] Escitalopram [Lexapro] 10 mg PO DAILY 09/28/17 09/28/17 History Montelukast [Singulair] 10 mg PO DAILY 09/28/17 09/28/17 History Allergies Allergy/AdvReac Type Severity Reaction Status Date / Time No Known Allergies Allergy Verified 09/28/17 10:18 Physical Examination - Vital Signs Vital Signs: Vital Signs Temp Pulse Pulse Resp BP BP Pulse Ox 09/28/17 17:06 98.1 F 84 18 117/69 100 09/28/17 13:00 98.4 F 72 16 123/67 100 09/28/17 12:28 78 16 115/69 100 09/28/17 09:56 97.9 F 78 16 155/66 100 Intake and Output 04/09/28/17 09/28/17 06:59 14:59 22:59 Intake Total 200 Balance 200 Intake: Other 200 Other: Weight 69 kg - Constitutional General appearance: average body habitus, cooperative - EENT EENT: PERRL, mucous membranes moist - Respiratory Respiratory: lungs clear, normal breath sounds - Cardiovascular Cardiovascular: regular rate, normal S1, normal S2 Extremities: no peripheral edema bilaterally - Gastrointestinal Gastrointestinal: normoactive bowel sounds - Integumentary Integumentary: normal - Neurologic Cranial nerve examination: PERRL, EOMI, VFF, V1/V2/V3 grossly intact, face symmetric, tongue midline, intact gag reflex, intact corneal reflex, normal palatal elevation Speech examination: intact Sensorimotor examination: intact Detailed motor examination: grossly full strength in all extremities Motor examination - right side: 4/5: biceps, triceps, wrist flexion, wrist extension, professor of special education, hip flexors, knee extensors, dorsiflexion, toe extension (EHL) , plantarflexion Motor examination - left side: 4/5: biceps, triceps, wrist flexion, wrist extension, professor of special education, hip flexors, knee extensors, dorsiflexion, toe extension (EHL) , plantarflexion Detailed sensory examination: intact Reflex and gait examination: intact Reflexes: 1+: ankle, bicep, knee, tricep - Musculoskeletal Musculoskeletal: no pain - Psychiatric Psychiatric: mood/affect appropriate, cooperative Results - Laboratory Findings CBC and BMP: 09/28/17 10:17 09/28/17 10:17 Abnormal Lab Findings: Abnormal Labs 09/28/17 09/28/17 10:17 10:17 Hgb 10.8 L Hct 32.7 L Total Protein 6.2 L Assessment and Plan (1) Muscle tension headache Current Visit: Yes Status: Acute Code(s): G44.209 - TENSION-TYPE HEADACHE, UNSPECIFIED, NOT INTRACTABLE SNOMED Code(s): 471892652 (2) Atypical chest pain Current Visit: Yes Status: Acute Code(s): R07.89 - OTHER CHEST PAIN SNOMED Code(s): 109713190 Plan: This patient is being evaluated for two-week history of chronic headache pain at the base of her neck. She has a history of muscle tension in the neck for which she sees a chiropractor. She was brought into the emergency room today due to acute onset of chest pain symptoms at work. She is being evaluated by cardiology. Patient had a computed tomography scan of the brain done today which is negative for any acute changes. Her neurological examination reveals her to have increased muscle tension in the right sternocleidomastoid muscles. This is quite obvious on examination today. We have recommended the patient to consider using her Flexeril which she already has at home 10 mg daily for the next 2 weeks. She is also advised to try warm and moist compresses to the head and neck region daily for 10-15 minutes. Her clinical exam findings are suggesting muscle tension headache at this time. Her neurological examination is nonfocal. We will await further recommendations from cardiology regarding further workup of her atypical chest pain symptoms. We will continue to monitor progress closely during this admission. Overall prognosis at this time remains fair. Time with Patient: Greater than 30
[2017-09-28] MEDS ORDERED: ACETAMINOPHEN TAB 500 MG TAB PO PRN (18:58)
[2017-09-28] MEDS: SYMBICORT 160-4.5 MCG INHALER INHALATION SCH (19:19)
[2017-09-28] MEDS: HEPARIN SODIUM,PORCINE 5,000 UNIT/ML 1 ML VIAL SQ SCH (21:43)
[2017-09-28 22:46] LABS: Creatine Kinase 61 U/L (30-135)
[2017-09-28 23:00] LABS: Creatine Kinase MB 0.4 ng/mL (0.0-2.4); Troponin I <0.012 ng/mL (0.000-0.034)
[2017-09-29 06:56] LABS: Basophils % (A) 1 %; Eosinophils # (A) 0.1 k/uL (0-0.7); Eosinophils % (A) 2 %; HCT 34.6 % (34.0-46.0); HGB 11.4 gm/dL (11.4-16.0); Lymphocytes # (A) 1.2 k/uL (1.0-4.8); Lymphocytes % (A) 21 %; MCH 27.3 pg (25.0-35.0); MCV 82.7 fL (80.0-100.0); Mean Platelet Volume 8.4; Monocytes # (A) 0.2 k/uL (0-1.0); Monocytes % (A) 4 %; Neutrophils # (A) 3.8 k/uL (1.3-7.7); Neutrophils % (A) 71 %; Platelet Count 220 k/uL (150-450); RBC 4.18 m/uL (3.80-5.40); RDW 13.8 % (11.5-15.5); WBC 5.4 k/uL (3.8-10.6)
[2017-09-29 07:13] LABS: ALT 17 U/L (9-52); AST 12 U/L (14-36); Alkaline Phosphatase 46 U/L (38-126); Blood Urea Nitrogen 14 mg/dL (7-17); Calcium 9.5 mg/dL (8.4-10.2); Carbon Dioxide 25 mmol/L (22-30); Cholesterol 195 mg/dL (<200); Glucose 95 mg/dL (74-99); HDL Cholesterol 61 mg/dL (40-60); LDL Cholesterol,Calculated 112 mg/dL (0-99); Potassium 4.5 mmol/L (3.5-5.1); Sodium 141 mmol/L (137-145); Total Bilirubin 0.2 mg/dL (0.2-1.3); Total Protein 6.4 g/dL (6.3-8.2); Triglycerides 109 mg/dL (<150)
[2017-09-29 07:14] LABS: Anion Gap 11 mmol/L; Chloride 105 mmol/L (98-107)
[2017-09-29] MEDS: SYMBICORT 160-4.5 MCG INHALER INHALATION SCH (08:18)
[2017-09-29 08:29] VITALS: TEMP 98
[2017-09-29] MEDS ORDERED: LORATADINE 10 MG TAB PO SCH (09:00)
[2017-09-29] MEDS ORDERED: FAMOTIDINE 20 MG TAB PO SCH (09:00)
[2017-09-29] MEDS ORDERED: ASPIRIN 325 MG TAB PO SCH (09:00)
[2017-09-29] MEDS ORDERED: MONTELUKAST 10 MG TAB PO SCH (09:00)
[2017-09-29] MEDS: HEPARIN SODIUM,PORCINE 5,000 UNIT/ML 1 ML VIAL SQ SCH (10:30)
[2017-09-29 11:44] VITALS: BP 112/70; PULSE 78; RESP 17
--- NOTE | 2017-09-29 12:00 | EST ---
EXERCISE STRESS AGE: 32 SEX: F HT: 66" WT: 152 PROTOCOL: Eben Exercise Stress Test STAGE: 3 DURATION OF EXERCISE: 8:00 HEART RATE REST: 79 BLOOD PRESSURE REST: 121/89 MAXIMUM HEART RATE ACHIEVED: 176 MAXIMUM BLOOD PRESSURE: 141/69 85% MPHR: 161 100% MPHR: 189 METS: 9.7 INDICATIONS: Chest pain. CLINICAL INFORMATION: STRESS DATA: Pretesting physical examination showed a heart rate of 79, pressure is 121/89 mmHg. Baseline EKG showed sinus mechanism. The patient exercised on the treadmill according to Eben protocol for a total of 8 minutes and achieved 9.7 METS with max heart rate was 176, which is about 93% of maximum predicted heart rate. Maximum blood pressure is 141/69 mmHg. Clinically, the patient did not have any symptoms and the EKG did not show any significant ST or T-wave abnormalities consistent with ischemia. CONCLUSION: 1. Excellent exercise capacity. 2. Normal EKG in response to exercise. MMRICHARDL / IJN: [id number] /
--- NOTE | 2017-09-29 12:35 | P.PN ---
Subjective Progress Note Date: 09/29/17 Mrs. Maravilla is a pleasant 32-year-old female with no past medical history. 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 We have been asked to see her in consultation for chest pain. 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 She felt as if she was mildly short of breath and diaphoretic. She went to see the nurse at work and had her blood pressure checked and that came to be normal. The pain persisted for approximately 30 minutes and seemed to subside on its own. No specific aggravating or alleviating factors. She denies dizziness, palpitations, nausea or vomiting. The pain is not reproducible. She does states that she has had costrochondritis in the past and this felt different to her. She also is having a headache with vision changes in the right eye over the weekend. CT brain is negative. EKG reveals sinus mechanism with no acute ST or T-wave abnormalities. Chest xray is negative for an acute cardiopulmonary process. Laboratory data reviewed, hemoglobin 10.8, platelets 199, sodium 143, potassium 4.2, creatinine 0.62, trapezium 1.8, cardiac enzymes negative 1. 09/29/2017 Mrs. Willett is seen and examined today. She denies any further symptoms of chest discomfort. Cardiac enzymes are negative x3. Neurology has also seen the patient and diagnosed a muscle tension headache. Blood pressure 112/70 heart rate 78 afebrile and maintaining oxygen saturation on room air. Objective - Vital Signs Vital signs: Vital Signs Temp 98.0 F 09/29/17 11:43 Pulse 78 09/29/17 11:43 Resp 17 09/29/17 11:43 BP 112/70 09/29/17 11:43 Pulse Ox 99 09/29/17 11:43 Intake & Output 09/28/17 09/29/17 09/29/17 18:59 06:59 18:59 Intake Total 200 840 Balance 200 840 Weight 69 kg Intake: Oral 840 Other 200 Other: Voiding Method Toilet Toilet # Voids 2 - Exam GENERAL: Well-appearing, well-nourished and in no acute distress. NECK: Supple without JVD or thyromegaly. LUNGS: Breath sounds clear to auscultation bilaterally. Respiration equal and unlabored. No wheezes, rales or rhonchi. HEART: Regular rate and rhythm without murmurs, rubs or gallops. S1 and S2 heard. EXTREMITIES: Normal range of motion, no edema. No clubbing or cyanosis. Peripheral pulses intact and strong. - Labs CBC & Chem 7: 09/29/17 06:33 09/29/17 06:33 Labs: Abnormal Lab Results - Last 24 Hours (Table) 09/29/17 Range/Units 06:33 AST 12 L (14-36) U/L LDL Cholesterol, Calc 112 H (0-99) mg/dL HDL Cholesterol 61 H (40-60) mg/dL Assessment and Plan Assessment: ASSESSMENT 1. Chest pain, atypical. 2. Headache with vision changes. 3. Family history of heart disease with her father having stent placed in late 50's. PLAN Exercise stress test was performed and revealed an excellent exercise capacity and no evidence of stress induced ischemia. She is stable for discharge from a cardiac perspective. Follow up with Dr. Webb in the office in 2-3 weeks. Nurse Practitioner note has been reviewed, I agree with a documented findings and plan of care. Patient was seen and examined.
--- NOTE | 2017-09-29 13:24 | P.DS ---
Providers Date of admission: 09/28/17 12:02 Expected date of discharge: 09/29/17 Attending physician: Gen Malcolm Consults: 09/28/17 12:02 Consult Physician Urgent Consulting Provider: [facility] Consult Reason/Comments: Chest pain Do you want consulting provider notified?: Yes 09/28/17 13:11 Consult Physician Routine Consulting Provider: Roque Mccullough Consult Reason/Comments: vision changes, headache Do you want consulting provider notified?: Yes Primary care physician: Julita Camp [facility] Course: Discharge diagnosis 1. Chest pain: [place] ruled out. EKG normal sinus rhythm. Troponins negative 3. Chest x-ray no acute process. Stress test negative 2. Headache with vision changes: Computed tomography scan of the brain negative. Patient seen evaluated by neurology. [place] symptoms were likely related to muscle tension headache in the recommending Flexeril 10 mg daily for the next 2 weeks 3. History of costochondritis 4. History of depression Hospital course This is a 32-year-old female, patient of Dr. Camp. She has a known past medical history of costochondritis for several years, depression and asthma. Patient reports she started having left sided sharp chest pain while working today. She reports the pain lasted for about a half hour and that she was diaphoretic with it. She went to see the nurse at the facility and was told that her blood pressure was good but recommended that she goes to the emergency room for further evaluation. Patient does have family history of cardiac disease. Patient reports that the chest pain did improve while she was in the ambulance. And she had further improvement in the pain when the nitro patch was placed. Patient reports that this chest pain was different than her usual costochondritis pains. Last stress test was 2 years ago and negative per patient. Patient is been admitted to the observation floor and cardiology has been consulted. Patient is also been reporting headaches in the back of her head that radiated up into the front of her head. She's been having some episodes of dizziness and did have vision changes that only lasted a few minutes. Patient denies any slurred speech any numbness or weakness on one side of the body. She denies any history of diabetes high blood pressure stroke or any heart disease. EKG showing a normal sinus rhythm. Chest x-rays negative. Troponins negative 1. Hemoglobin 10.8. Cardiology has been consulted and neurology. Computed tomography scan of the brain has been ordered. Patient denies any cough, fever or chills or sweats. Denies any vomiting. Denies any bowel movement changes or urinary symptoms. Patient's symptoms have resolved. She's been seen by both cardiology and neurology. [place] ruled out. Cardiac workup is negative as stated above. Patient is cleared by cardiology for discharge. Patient also seen by neurology regards to her headache and vision changes. Symptoms have resolved but neurology felt that most likely related to muscle tension headache. They're recommending Flexeril and applying heat to the area. Patient already has a prescription for Flexeril at home. Patient will follow-up with cardiology in 2 weeks. I performed an examination of the patient and discussed their management with the physician Diplomatic Courier. I have reviewed the Physician Diplomatic Courier's notes and agree with the documented findings and plan of care Patient Condition at Discharge: Stable Plan - Discharge Summary New Discharge Prescriptions: New Cyclobenzaprine [Flexeril] 10 mg PO HS #30 tab Continue Loratadine [Claritin] 10 mg PO DAILY Fluticasone Nasal [place] [Flonase Nasal [place]] 2 spr EA NOSTRIL DAILY PRN PRN Reason: Allergy Symptoms Montelukast [Singulair] 10 mg PO DAILY Budesonide/Formoterol Fumarate [Symbicort 160-4.5 Mcg Inhaler] 1 puff INHALATION RT-BID Escitalopram [Lexapro] 10 mg PO DAILY Discharge Medication List Fluticasone Nasal [place] [Flonase Nasal [place]] 2 spr EA NOSTRIL DAILY PRN [History] Loratadine [Claritin] 10 mg PO DAILY 08/05/16 [History] Budesonide/Formoterol Fumarate [Symbicort 160-4.5 Mcg Inhaler] 1 puff INHALATION RT-BID 09/28/17 [History] Escitalopram [Lexapro] 10 mg PO DAILY 09/28/17 [History] Montelukast [Singulair] 10 mg PO DAILY 09/28/17 [History] Cyclobenzaprine [Flexeril] 10 mg PO HS #30 tab 09/29/17 [Rx] Follow up Appointment(s)/Referral(s): Flavio Webb MD [STAFF PHYSICIAN] - 2 Weeks Julita Camp DO [Primary Care Provider] - 1 Week Activity/Diet/Wound Care/Special Instructions: Diet: regular Activity: as tolerated Discharge Disposition: HOME SELF-CARE
== END 2017-09-29 15:09 | disposition home or self-care (01) ==
LOC: EC 09:54 → 3OBS 12:02
PROVIDERS: ADMIT Internal Medicine; ATTEND Internal Medicine
DX: R07.89 Other chest pain (principal); G44.209 Tension-type headache, unspecified, not intractable; F32.9 Major depressive disorder, single episode, unspecified; J45.909 Unspecified asthma, uncomplicated; M94.0 Chondrocostal junction syndrome [Tietze]; Z98.890 Other specified postprocedural states; Z79.899 Other long term (current) drug therapy; Z79.51 Long term (current) use of inhaled steroids; Z82.49 Family history of ischemic heart disease and other diseases of the circulatory system
CPT/HCPCS: 96372; 99285; 36415; 94640 ×2; 93005; 93017; 80061; 80053 ×2; 84443; 82550; 82553; 83735; 84484; 85025 ×2; 85610; 85730; 71046; 70450; G0378 ×2; J1644

== ENCOUNTER → 2020-01-06 | Outpatient (CLI) | payer OTHER ==
[2020-01-06 07:40] LABS: HCT 34.3 % (34.0-46.0); HGB 10.9 gm/dL (11.4-16.0); MCH 26.6 pg (25.0-35.0); MCHC 31.8 g/dL (31.0-37.0); MCV 83.6 fL (80.0-100.0); Platelet Count 215 k/uL (150-450)
[2020-01-06 11:15] LABS: African American GFR (CKD) 131.9 (60.0-200.0); BUN/Creat Ratio 15.71 Ratio (12.00-20.00); Calcium 9.6 mg/dL (8.7-10.3); Chol/HDL Ratio 4.69; Non-African American GFR(CKD) 113.8 (60.0-200.0); Potassium 4.2 mmol/L (3.5-5.5)
[2020-01-06 11:27] LABS: T4, Free (Free Thyroxine) 0.8 ng/dL (0.80-1.80)
== END | disposition home or self-care (01) ==
LOC: LABWHC1 06:59
PROVIDERS: ATTEND Nurse Practitioner
DX: R07.9 Chest pain, unspecified (principal); E78.2 Mixed hyperlipidemia; R00.2 Palpitations; E55.9 Vitamin D deficiency, unspecified; Z82.49 Family history of ischemic heart disease and other diseases of the circulatory system
CPT/HCPCS: 36415; 80048; 80061; 82306; 83735; 84439; 84443; 84450; 84460; 85027

== ENCOUNTER → 2020-01-06 | Outpatient (CLI) | payer OTHER | END | disposition home or self-care (01) | LOC: LABWHC1 01-02 11:22 | PROVIDERS: ATTEND Nurse Practitioner | DX: Z53.9 Procedure and treatment not carried out, unspecified reason (principal) ==